=== PATIENT | female | born 1980 | race Caucasian/White ===

== ENCOUNTER 2022-05-05 10:34 | Emergency (ER) | payer MEDICAID ==
[~2022-05-05] VITALS: Ht 152.4 cm; Wt 82.0 kg
[2022-05-05 10:37] VITALS: BP 158/89
[2022-05-05] MEDS ORDERED: DIAZEPAM 2 MG TABLET PO ONE (12:30)
== END 2022-05-05 14:53 | disposition left against medical advice (07) ==
LOC: ER 12:17
DX: R42 Dizziness and giddiness (principal)
CPT/HCPCS: 71045; 99283